=== PATIENT | female | born 1990 | race Caucasian/White ===

== ENCOUNTER 2016-09-08 13:31 | Emergency (ER) | payer OTHER ==
[2016-09-08 14:03] VITALS: RESP 20; TEMP 97.8
[2016-09-08] MEDS ORDERED: IBUPROFEN 800 MG TAB PO STA (14:26)
--- NOTE | 2016-09-08 14:32 | ED ---
Upper Extremity HPI - General Source: patient Mode of arrival: ambulatory Limitations: no limitations - History of Present Illness Place: home <Davina Pat - Last Filed: 09/08/16 14:17> <Aniket Myers - Last Filed: 10/23/16 14:49> - General Chief Complaint: Extremity Injury, Upper Stated Complaint: Injury/Finger Lac Time Seen by Provider: 09/08/16 14:16 - History of Present Illness Initial Comments: 26-year-old female presented to the ER after shutting her hand in a glass screen door. She has lacerations on the second and third digits distally involving the nailbed on the third digit. She does have artificial nails in place. She states that she is unable to move the hand due to pain. She has not taken anything for pain at this time and does say that at times it is in 8- 10 out of 10. She proceeded to the ER after the injury. Patient states she is unsure when her last tetanus shot was it may have been approximately 4-5 years ago when she was with her daughter. She denies any nausea, vomiting, numbness in the extremity. She denies any constitutional symptoms. (Davina Pat) - Related Data Home Medications Medication Instructions Recorded Confirmed Norgestimate-Ethinyl Estradiol 1 tab PO DAILY 09/08/16 09/08/16 [Sprintec 28 Day Tablet] Previous Rx's Medication Instructions Recorded Acetaminophen-Codeine 300-30mg 1 tab PO Q6H PRN #20 tablet 09/08/16 [Tylenol #3] Ibuprofen [Motrin] 800 mg PO Q8HR PRN #30 tab 09/08/16 Allergies Allergy/AdvReac Type Severity Reaction Status Date / Time cefaclor [From Ceclor] Allergy Unknown Verified 09/08/16 14:20 Review of Systems ROS Other: All systems not noted in ROS Statement are negative. <Davina Pat - Last Filed: 09/08/16 14:17> ROS Other: All systems not noted in ROS Statement are negative. <Aniket Myers - Last Filed: 10/23/16 14:49> ROS Statement: Those systems with pertinent positive or pertinent negative responses have been documented in the HPI. Past Medical History Past Medical History: No Reported History History of Any Multi-Drug Resistant Organisms: None Reported Past Surgical History: Orthopedic Surgery Additional Past Surgical History / Comment(s): left foot Past Psychological History: No Psychological Hx Reported Smoking Status: Never smoker Past Alcohol Use History: None Reported Past Drug Use History: None Reported <Davina Pat - Last Filed: 09/08/16 14:17> General Exam Limitations: no limitations General appearance: alert, other (Mild distress due to pain) Head exam: Present: atraumatic, normocephalic Eye exam: Present: normal appearance, PERRL, EOMI Pupils: Present: normal accommodation Neck exam: Present: normal inspection, full ROM Respiratory exam: Present: normal lung sounds bilaterally Cardiovascular Exam: Present: regular rate, normal rhythm Extremities exam: Present: normal capillary refill (Capillary refill less than 3 seconds status post laceration repair.), other (Right hand: Laceration linear approximately 1.5 cm involving the nailbed on the third digit with diffuse edema and mild ecchymosis on the palmar surface with no laceration present there. There is another laceration stellate in appearance on the second digit with mild edema. She has decreased range of motion of the digits. Unable to assess capillary refill due to pain. The thumb fourth and fifth digit are able to be moved passively. She has no issues in the wrist elbow or shoulder on the right hand. The left upper extremity is within normal limits.) Neurological exam: Present: alert, oriented X3, CN II-XII intact Psychiatric exam: Present: normal affect, normal mood Skin exam: Present: other (See upper extremity exam.) <Davina Pat - Last Filed: 09/08/16 14:17> Procedures - Laceration Laceration #1 Consent Obtained: verbal consent Time Out Performed: Yes Indication: laceration Site: hand (third digit) Description: irregular Depth: involves muscle layer Anesthetic Used: lidocaine 1%, without epi Anesthesia Technique: nerve block Pre-repair: wound explored, irrigated extensively Type of Sutures: nylon Size of Sutures: 5-0 Number of Sutures: 3 Technique: simple, interrupted, other (2 simple interrupted sutures were placed on the lateral inferior edge of the laceration and one circumferential suture was placed around the existing acrylic nail from the lateral to medial nail fold. The finger was then wrapped with Steri-Strips to give better approximation.) Patient Tolerated Procedure: well <Davina Pat N - Last Filed: 09/08/16 14:17> <Aniket Myers - Last Filed: 10/23/16 14:49> - Laceration Laceration #1 Additional Comments: Discussed with patient that her nail was severely injured and that it may not grow back properly. Also informed that she may lose the nail. Due to the depth of the laceration she may have permanent numbness as well. (Davina Pat) Medical Decision Making - Radiology Data Radiology results: report reviewed (Report states that there is a comminuted fracture of the distal phalanx.), image reviewed (Apparent tuft fracture on the third digit distal phalanx.) <Davina Pat - Last Filed: 09/08/16 14:17> <Aniket Myers - Last Filed: 10/23/16 14:49> - Medical Decision Making A 18-year-old female presented to the ER after shutting her hand in a glass door. She does have 2 lacerations on her second and third digit involving the nailbed. With diffuse edema and limited range of motion. Upon exam the laceration on the second digit involving the nailbed appears to the quite deep and an x-ray was ordered to evaluate underlying hand structures. The patient was given a Motrin 800 to help control pain. She states that she had a adverse reaction to Vicodin in the past. X-ray was reviewed with attending physician's and it does show that there is a tuft fracture of the third digit. Upon discussion with the attending physicians it was recommended that I suture what areas I was able suture. A nerve block was placed proximally at the MCP joint with 1% Xylocaine. The nail was then approximated. The area was then bandaged and placed in a finger splint. She is followed PCP and orthopedics this week. Patient was also placed off of work for 2 weeks for proper healing to occur. Explained that she would need to get clearance from PCP or orthopedics if she would like to return sooner. Suture removal is needed in 7 days. (Davina Pat) Disposition Time of Disposition: 16:08 <Davina Pat - Last Filed: 09/08/16 14:17> <Aniket Myers - Last Filed: 10/23/16 14:49> Clinical Impression: Crushing injury of finger, Laceration of finger nail bed, Open fracture of tuft of distal phalanx of finger Disposition: HOME SELF-CARE Condition: Stable Instructions: Finger Fracture (ED), Finger Laceration (ED) Additional Instructions: Suture removal needed in 7 days. To return to the ER with any worsening symptoms or concerns. To follow up with primary care physician and orthopedics. Prescriptions: Acetaminophen-Codeine 300-30mg [Tylenol #3] 1 tab PO Q6H PRN #20 tablet PRN Reason: Pain Ibuprofen [Motrin] 800 mg PO Q8HR PRN #30 tab PRN Reason: Pain Referrals: Janusz Fitch DO [Primary Care Provider] - 1-2 days Dean Glaser MD [STAFF PHYSICIAN] - 1-2 days
--- NOTE | 2016-09-08 14:52 | XR ---
EXAMINATION TYPE: XR hand complete RT DATE OF EXAM: 09/08/2016 2:43 PM COMPARISON: NONE HISTORY: Window fell on the hand laceration second and third digits TECHNIQUE: 3 views right hand FINDINGS: There is a comminuted fracture of the tuft of the index finger. No additional fractures are evident. Soft tissue swelling is over the distal index finger IMPRESSION: 1. Comminuted fracture distal tuft index finger
[2016-09-08] MEDS ORDERED: DIPH,PERTUS(ACELL)TETVAC-LF 0.5 ML VIAL IM ONE (16:01)
[2016-09-08 17:01] VITALS: BP 131/75; PULSE 68
== END 2016-09-08 17:00 | disposition home or self-care (01) ==
LOC: EC 13:31
DX: S62.630B Displaced fracture of distal phalanx of right index finger, initial encounter for open fracture (principal); S61.312A Laceration without foreign body of right middle finger with damage to nail, initial encounter; Z79.3 Long term (current) use of hormonal contraceptives; Z88.1 Allergy status to other antibiotic agents; Z23 Encounter for immunization; W23.0XXA Caught, crushed, jammed, or pinched between moving objects, initial encounter
CPT/HCPCS: 12041; 90471; 90715; 99283

== ENCOUNTER 2018-02-21 22:12 | Emergency (ER) | payer OTHER ==
--- NOTE | 2018-02-21 22:41 | ED ---
Female Urogenital HPI - General Chief complaint: Urogenital Stated complaint: urogenital Time Seen by Provider: 02/21/18 22:21 Source: patient Mode of arrival: ambulatory Limitations: no limitations - History of Present Illness Initial comments: This patient is 27-year-old woman presenting to be evaluated for some vaginal spotting and pelvic cramping. Patient relates that she is , who had taken two home test within the past few days and they were positive. She presents here because yesterday she had sexual intercourse and then had a small amount of spotting immediately thereafter. That did stop but she has had some intermittent pelvic cramping since. She does note that her last period last month was very light and was shorter than usual. She had been taking an oral contraceptive. Patient sees Dr. Baldomero ARNOLD Complaint: vaginal bleeding, pelvic pain Onset/Timin -: days(s) Location: suprapubic Radiation: non-radiating Severity: mild Quality: dull Consistency: constant Improves with: none Worsens with: none Patient : Yes - Related Data Sexually active: Yes Home Medications Medication Instructions Recorded Confirmed Norgestimate-Ethinyl Estradiol 1 tab PO DAILY 09/08/16 02/21/18 [Sprintec 28 Day Tablet] Allergies Allergy/AdvReac Type Severity Reaction Status Date / Time [facility] [[facility]] Allergy Unknown Verified 09/08/16 14:20 Review of Systems ROS Statement: Those systems with pertinent positive or pertinent negative responses have been documented in the HPI. ROS Other: All systems not noted in ROS Statement are negative. Constitutional: Denies: fever, chills, weakness ENT: Denies: congestion Respiratory: Denies: cough, dyspnea Cardiovascular: Denies: chest pain, palpitations, edema Gastrointestinal: Reports: as per HPI, abdominal pain. Denies: nausea, vomiting , diarrhea, constipation Genitourinary: Reports: abnormal menses (Last menstrual period was audio narrator than usual, basically spotting). Denies: dysuria, frequency, hematuria Musculoskeletal: Denies: back pain Skin: Denies: rash Neurological: Denies: headache, weakness Hematological/Lymphatic: Denies: easy bleeding Past Medical History Past Medical History: No Reported History History of Any Multi-Drug Resistant Organisms: None Reported Past Surgical History: Orthopedic Surgery Additional Past Surgical History / Comment(s): left foot Past Psychological History: No Psychological Hx Reported Smoking Status: Never smoker Past Alcohol Use History: Occasional Past Drug Use History: None Reported General Exam Limitations: no limitations General appearance: alert, in no apparent distress Head exam: Present: atraumatic, normocephalic, normal inspection Eye exam: Present: normal appearance. Absent: scleral icterus, conjunctival injection Pupils: Present: other (No pallor) ENT exam: Present: normal oropharynx, mucous membranes moist, other (No pallor) Respiratory exam: Present: normal lung sounds bilaterally. Absent: respiratory distress, wheezes, rales, rhonchi, stridor Cardiovascular Exam: Present: regular rate, normal rhythm, normal heart sounds. Absent: systolic murmur, diastolic murmur, rubs, gallop GI/Abdominal exam: Present: soft. Absent: distended, tenderness, guarding, rebound, rigid, mass Extremities exam: Present: normal inspection, normal capillary refill. Absent: pedal edema, calf tenderness Back exam: Absent: CVA tenderness (R), CVA tenderness (L) Neurological exam: Present: alert Skin exam: Present: warm, dry, intact, normal color. Absent: rash Course Vital Signs 02/21/18 22:14 Temperature 98.5 F Pulse Rate 82 Respiratory 18 Rate Blood Pressure 116/84 O2 Sat by Pulse 100 Oximetry Medical Decision Making - Medical Decision Making Patient has a beta hCG of 65. I discussed all of the findings with the patient and then discussed gynecologic exam and ultrasound. At this point the patient is not having any symptoms right now. She states that it has been a very long day and that she would prefer to just follow up with Dr. Alexandre in the clinic. I did stress that if the symptoms recur she should just return here immediately. At this point she is declining gynecologic exam and ultrasound. She does understand that she must follow-up in 48 hours for repeat hCG and probable ultrasound at that point. Discussed possibility of threatened miscarriage, ectopic and the rest of the differential diagnosis. Discussed return parameters and appropriate follow-up QUESTIONS answered - Lab Data Result diagrams: 02/21/18 22:34 02/21/18 22:34 Lab Results 02/21/18 02/21/18 Range/Units 22:34 22:34 WBC 7.6 (3.8-10.6) k/uL RBC 4.09 (3.80-5.40) m/uL Hgb 12.3 (11.4-16.0) gm/dL Hct 37.9 (34.0-46.0) % MCV 92.6 (80.0-100.0) fL MCH 30.0 (25.0-35.0) pg MCHC 32.4 (31.0-37.0) g/dL RDW 12.8 (11.5-15.5) % Plt Count 287 (150-450) k/uL Neutrophils % 57 % Lymphocytes % 32 % Monocytes % 6 % Eosinophils % 3 % Basophils % 1 % Neutrophils # 4.3 (1.3-7.7) k/uL Lymphocytes # 2.4 (1.0-4.8) k/uL Monocytes # 0.4 (0-1.0) k/uL Eosinophils # 0.2 (0-0.7) k/uL Basophils # 0.1 (0-0.2) k/uL Sodium 140 (137-145) mmol/L Potassium 4.1 (3.5-5.1) mmol/L Chloride 107 (98-107) mmol/L Carbon Dioxide 24 (22-30) mmol/L Anion Gap 9 mmol/L BUN 13 (7-17) mg/dL Creatinine 0.63 (0.52-1.04) mg/dL Est GFR (CKD-EPI)AfAm >90 (>60 ml/min/1.73 sqM) Est GFR (CKD-EPI)NonAf >90 (>60 ml/min/1.73 sqM) Glucose 89 (74-99) mg/dL Calcium 9.8 (8.4-10.2) mg/dL HCG, Quant 65.7 mIU/mL Disposition Clinical Impression: Threatened Disposition: HOME SELF-CARE Condition: Good Instructions: Threatened Miscarriage (ED) Is patient prescribed a controlled substance at d/c from ED?: No Referrals: Janusz Fitch DO [Primary Care Provider] - 1-2 days Christina Alexandre MD [STAFF PHYSICIAN] - 1-2 days
[2018-02-21 22:44] LABS: Basophils # (A) 0.1 k/uL (0-0.2); Basophils % (A) 1 %; Eosinophils # (A) 0.2 k/uL (0-0.7); Eosinophils % (A) 3 %; HCT 37.9 % (34.0-46.0); HGB 12.3 gm/dL (11.4-16.0); Lymphocytes # (A) 2.4 k/uL (1.0-4.8); Lymphocytes % (A) 32 %; MCHC 32.4 g/dL (31.0-37.0); MCV 92.6 fL (80.0-100.0); Mean Platelet Volume 6.8; Monocytes # (A) 0.4 k/uL (0-1.0); Monocytes % (A) 6 %; Neutrophils # (A) 4.3 k/uL (1.3-7.7); Neutrophils % (A) 57 %; Platelet Count 287 k/uL (150-450); RBC 4.09 m/uL (3.80-5.40); RDW 12.8 % (11.5-15.5); WBC 7.6 k/uL (3.8-10.6)
[2018-02-21 22:54] LABS: Anion Gap 9 mmol/L; Blood Urea Nitrogen 13 mg/dL (7-17); Calcium 9.8 mg/dL (8.4-10.2); Carbon Dioxide 24 mmol/L (22-30); Chloride 107 mmol/L (98-107); Glucose 89 mg/dL (74-99); Potassium 4.1 mmol/L (3.5-5.1); Sodium 140 mmol/L (137-145)
[2018-02-21 23:11] LABS: HCG,Quantitative Serum 65.7 mIU/mL
[2018-02-21] MEDS ORDERED: ACETAMINOPHEN TAB 325 MG TAB PO STA (23:27)
[2018-02-22 00:03] VITALS: BP 120/67; PULSE 74; RESP 16; TEMP 98.1
== END 2018-02-22 00:03 | disposition home or self-care (01) ==
LOC: EC 22:12
DX: O20.0 Threatened abortion (principal); Z88.1 Allergy status to other antibiotic agents; Z79.3 Long term (current) use of hormonal contraceptives; Z3A.00 Weeks of gestation of pregnancy not specified
CPT/HCPCS: 36415; 80048; 84702; 85025; 99284

== ENCOUNTER → 2018-02-24 | Outpatient (CLI) | payer OTHER | END | disposition home or self-care (01) | LOC: LABWHC1 08:30 | PROVIDERS: ATTEND Emergency Medicine | DX: O20.0 Threatened abortion (principal); Z3A.00 Weeks of gestation of pregnancy not specified | CPT/HCPCS: 36415; 84702 ==

== ENCOUNTER → 2018-02-26 | Outpatient (CLI) | payer OTHER ==
--- NOTE | 2018-02-26 14:21 | USB ---
Reason for exam: clinical finding. History: Family history of breast cancer in grandmother. Indicated problem(s): palpable abnormality in the left breast. Physical Findings: Nurse Summary: BB on area of palpable (nurse kp). US Breast LT Left complete breast ultrasound includes all four quadrants, the retroareolar region and axilla. Finding demonstrates no cystic or solid lesion seen. At the 12 o'clock palpable site, focal dense tissue is seen. These results were verbally communicated with the patient and result sheet given to the patient on 02/26/18. ASSESSMENT: Benign, BI-RAD 2 RECOMMENDATION: Routine screening mammogram of both breasts at age 38. (unless clinical indication to start sooner) Manage on a clinical basis with regard to any suspicious palpable abnormality.
--- NOTE | 2018-02-26 17:45 | US ---
EXAMINATION TYPE: Ultrasound OB <= 14 week transvaginal DATE OF EXAM: 02/26/2018 COMPARISON: NONE CLINICAL HISTORY: 27-year-old female Z33.1 STATE. LMP unknown, was on control when she got . EXAM PERFORMED: Transvaginal (TV) and Transabdominal (TA) FINDINGS: EXAM MEASUREMENTS: GESTATIONAL AGE / DATING Physician Established: Not yet established Dates by LMP: LMP unknown Dates by First Scan: No previous this is first scan Dates by Current Scan for: No IUP visualized on this exam MATERNAL ANATOMY Uterus: 9.3 x 4.8 x 5.5 cm Endometrium: 1.4 cm Right Ovary: 5.4 x 4.1 x 5.3 cm Left Ovary: 2.8 x 1.6 x 1.9 cm Post CDS / Adnexa: Free fluid visualized within the cul de sac and the right adnexa adjacent to the r ight ovary Presence of free fluid: Yes Presence of corpus luteal cyst: Cystic area right ovary measuring 3.9 x 4.1 x 4.0 cm Presence of subchorionic bleed: No GESTATION / SURVEY IUP: No IUP seen at this time Date of LMP: Unsure Beta HcG (if available): 366 on 02/24/2018 No IUP visualized at this time. Cystic area right ovary. Prominent vessels visualized bilateral adnex a. Free fluid visualized in the right adnexa and the posterior cul de sac. IMPRESSION: Mild cul-de-sac and right adnexal free fluid. This may be physiologic. There is also a probable 4.9 cm corpus luteal cyst in the right ovary. Note that the beta-hCG value is below the threshold for visualization of an intrauterine . A value of 2000 is the threshold with transvaginal scanning. Currently, differential considerations include early , failed , and nonvisualized e ctopic . Appropriate follow-up recommended to ensure the appearance of a normal pole w ith cardiac activity.
== END ==
LOC: RADUSWWP 12:45
PROVIDERS: ATTEND Family Medicine
DX: N63.0 Unspecified lump in unspecified breast (principal); Z33.1 Pregnant state, incidental
CPT/HCPCS: 76801; 76817

== ENCOUNTER → 2018-03-05 | Outpatient (CLI) | payer OTHER ==
--- NOTE | 2018-03-05 12:19 | US ---
EXAMINATION TYPE: Transabdominal DATE OF EXAM: 09/02/17 COMPARISON: NONE CLINICAL HISTORY: Z33.1 state, incidental. EXAM PERFORMED: Transvaginal (TV) and Transabdominal (TA) EXAM MEASUREMENTS: GESTATIONAL AGE / DATING Physician Established: Not yet established Dates by LMP: LMP unknown Dates by First Scan: Not dated by previous scan Dates by Current Scan for: (5 weeks/1 days) EDC: 11-04-18 MATERNAL ANATOMY Uterus: 9.4 x 5.1 x 5.3cm Right Ovary: 5.9 x 4.7 x 4.7cm, simple appearing cyst measuring 5.7x 4.2 x 5.4cm Left Ovary: 2.3 x 1.7 x 1.6cm Post CDS / Adnexa: wnl Presence of free fluid: small amount in cul de sac GESTATION / SURVEY CRL: not yet identified MSD: 1.1 (5 weeks/1 days) Yolk Sac (normal less than 6mm): 2.2mm Date of LMP: Unknown Beta HcG (if available): Not available at this time Probable early IUP. Preliminary results phoned to Kaleigh Baca and Dr. Miranda office. IMPRESSION: 1. Probable early intrauterine gestation estimated at 5 weeks 1 day gestation based on the mean sac d iameter. Yolk sac is identified. pole is not evident and follow-up is recommended.
== END | disposition home or self-care (01) ==
LOC: RADUSWWP 11:13
PROVIDERS: ATTEND Midwife
DX: Z33.1 Pregnant state, incidental (principal)
CPT/HCPCS: 76801; 76817

== ENCOUNTER → 2018-03-19 | Outpatient (CLI) | payer OTHER ==
--- NOTE | 2018-03-19 11:04 | US ---
EXAMINATION TYPE: Ultrasound OB <= 14 week fetus DATE OF EXAM: 03/19/2018 COMPARISON: 03/05/2018 CLINICAL HISTORY: 27-year-old female Z33.1 incidental. Confirm Dates, pt has no complaints at this time EXAM PERFORMED: Transabdominal (TA) FINDINGS: EXAM MEASUREMENTS: GESTATIONAL AGE / DATING Physician Established: Not yet established Dates by LMP: Unknown Dates by First Scan: (7 weeks/1 days) EDC: 11/04/2018 Dates by Current Scan for: (7 weeks/1 days) EDC: 11/04/2018 MATERNAL ANATOMY Uterus: 11.7 x 6.2 x 6.6 cm Right Ovary: 6.5 x 4.5 x 6.8 cm Left Ovary: 2.3 x 2.0 x 2.4 cm Post CDS / Adnexa: wnl Presence of free fluid: No Presence of corpus luteal cyst: Right Ovary= 5.2 x 3.7 x 5.6 cm Presence of subchorionic bleed: No GESTATION / SURVEY CRL: 1.1 cm (7 weeks/1 days) MSD: wnl Yolk Sac (normal less than 6mm): 2mm Heart Rate: 150 bpm Rhythm: Normal IUP: Viable IUP Date of LMP: Unknown Single, viable IUP/ No abnormality seen at this time IMPRESSION: 1. Single live uterine with gestational age of 7 weeks 1 day by crown-rump length. There spain s been appropriate interval growth from 03/05/2018. 2. Large corpus luteal cyst in the right ovary measuring 5.6 cm. It should be noted that a large ovar stephanie lesion can place the ovary at risk for torsion. Patient can be monitored clinically. 3. Complete survey recommended at 18-20 weeks.
== END | disposition home or self-care (01) ==
LOC: RADUSWWP 10:03
PROVIDERS: ATTEND Family Medicine
DX: Z34.91 Encounter for supervision of normal pregnancy, unspecified, first trimester (principal); Z3A.01 Less than 8 weeks gestation of pregnancy
CPT/HCPCS: 76801

== ENCOUNTER 2018-08-15 13:41 | Outpatient (CLI) | payer OTHER ==
[2018-08-15 14:58] VITALS: BP 106/51; PULSE 91; RESP 18
--- NOTE | 2018-09-01 09:26 | P.MSEPDOC ---
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, numbess of upper legs Medical History - Information : 4 Para: 3 Number of Living Children: 3 - History Comment: term vag delivery x3 previous pregnancies Review of Systems - Review of Systems Constitutional: No problems Breast: No problems ENT: No problems Cardiovascular: No problems Respiratory: No problems Gastrointestinal: No problems Genitourinary: No problems Musculoskeletal: No problems Neurological: No problems Skin: No problems Vital Signs - Pulse Right Sitting Brachial Pulse Rate: 91 Pulse Assessment Method: Automatic Cuff - Respirations Respiratory Rate: 18 Oxygen Delivery Method: Room Air - Blood Pressure Left Arm Sitting Blood Pressure: 106/51 Blood Pressure Mean: 69 Blood Pressure Source: Automatic Cuff Medical Screen Scoring (Pre) - Cervical Exam Dilation: 0 cm = 0 - Uterine Contractions Frequency: > 5 minutes apart = 1 Duration: N/A Intensity: N/A - Maternal Vital Signs Maternal Temperature: N/A Maternal Blood Pressure: Systolic >139 = 2 Signs of Preeclampsia: N/A Maternal Respirations: N/A - Pain Assessment Pain Location and Character: Abdomen Pain Scale Used: FLACC (1-3yrs) Pain Intensity: 3 Pain Management Goal: 3 Pain Description: Cramping - Assessment Baseline FHR: 135 Heart Rate - NICHD Category: Category I (Normal) = 0 NST: Reactive Position: N/A Station: N/A - Total Score Total Score (Pre): 3 - Level of Risk Level of Risk: Low (0-5) Physician Notification (Pre) - Physician Notified Physician Notified Date: 08/15/18 Physician Notified Time: 14:23 Physician/Practitioner Notifed:: Dr Robbins Spoke With: dr Robbins New Order Received: Yes - Notification Comment Comment: 29 5/7 weeks, pain x2-3 weeks worse today after trying to work. Pt states pain is better at rest. NST reactive, Cervix closed internal os (open external)/thick/high, rare contraction. pt dc home with plan to call friday with update and schedule appt to see Dr Niver this week. Encouraged rest, fluids and tylenol as directed. Off work until next appt if desired. Disposition - Disposition OB Disposition: Discharge to home Discharge Date: 08/15/18 Discharge Time: 14:57 I agree with the RN Medical Screening Exam: Yes Risk & Benefit of care provided described in d/c instruction: Yes Diagnosis: 27 WEEKS GESTATION OF
== END 2018-08-15 14:59 | disposition home or self-care (01) ==
LOC: FBPOP 13:41
PROVIDERS: ATTEND Obstetrics & Gynecology
DX: O26.893 Other specified pregnancy related conditions, third trimester (principal); R10.30 Lower abdominal pain, unspecified; M54.5 Low back pain; Z3A.29 29 weeks gestation of pregnancy
CPT/HCPCS: 59025; G0463; 99213

== ENCOUNTER 2018-10-02 15:51 | Outpatient (CLI) | payer OTHER ==
[2018-10-02 16:28] VITALS: BP 129/75; PULSE 95; RESP 18
[2018-10-02 16:53] VITALS: TEMP 99.2
--- NOTE | 2018-10-04 10:13 | P.MSEPDOC ---
Presenting Problems - Arrival Data Date of Arrival on Unit: 10/02/18 Time of Arrival on Unit: 15:55 Mode of Transport: Ambulatory - Complaint OB-Reason for Admission/Chief Complaint: Possible Onset of Labor, NST Medical History - Information : 4 Para: 3 Term: 3 : 0 Abortions: Spontaneous or Elective: 0 Number of Living Children: 3 - Gestational Age Gestational Age by RUBIO (wks/days): 35 Weeks and 4 Days Review of Systems - Review of Systems Constitutional: No problems Breast: No problems ENT: No problems Cardiovascular: No problems Respiratory: No problems Gastrointestinal: No problems Genitourinary: No problems Musculoskeletal: No problems Neurological: No problems Skin: No problems Vital Signs - Temperature Temperature: 99.2 F - Pulse Right Brachial Pulse Rate: 95 Pulse Assessment Method: Automatic Cuff - Respirations Respiratory Rate: 18 Oxygen Delivery Method: Room Air O2 Sat by Pulse Oximetry: 100 - Blood Pressure Right Arm Blood Pressure: 129/75 Blood Pressure Mean: 93 Blood Pressure Source: Automatic Cuff Medical Screen Scoring (Pre) - Cervical Exam Dilation: 1-3 cm = 1 Effacement: More than 50% = 2 Membranes: Intact - Uterine Contractions Frequency: N/A Duration: N/A Intensity: N/A - Maternal Vital Signs Maternal Temperature: N/A Maternal Blood Pressure: N/A Signs of Preeclampsia: N/A Maternal Respirations: N/A - Pain Assessment Pain Location and Character: Left, Hip Pain Scale Used: Numeric (1 - 10) Pain Intensity: 3 Pain Description: *Acute Pain Frequency: Occasional Pain Duration Units: Hours Pain Behavior: None Exhibited, Vocalization Pain Aggravating Factors: Activity, Contractions Non-Pharmacological Interventions: Position/Reposition - Maternal Trauma Maternal Trauma: N/A - Assessment Baseline FHR: 130 Heart Rate - NICHD Category: Category I (Normal) = 0 NST: Reactive Position: N/A Station: N/A - Total Score Total Score (Pre): 3 - Level of Risk Level of Risk: Low (0-5) Physician Notification (Pre) - Physician Notified Physician Notified Date: 10/02/18 Physician Notified Time: 16:45 Physician/Practitioner Notifed:: yes Spoke With: izabella New Order Received: Yes - Notification Comment Comment: disch home. hkeep fri appt with dr fuchs. to bee off work till fri appt. to call office mon am for note and then stop and pick it up. Disposition - Disposition OB Disposition: Discharge to home Discharge Date: 10/02/18 Discharge Time: 16:53 I agree with the RN Medical Screening Exam: Yes Risk & Benefit of care provided described in d/c instruction: Yes Diagnosis: FALSE LABOR BEFORE 37 COMPLETED WEEKS OF GEST, THIRD TRI
== END 2018-10-02 16:54 | disposition home or self-care (01) ==
LOC: FBPOP 15:51
PROVIDERS: ATTEND Obstetrics & Gynecology Obstetrics
DX: O47.03 False labor before 37 completed weeks of gestation, third trimester (principal); Z3A.35 35 weeks gestation of pregnancy
CPT/HCPCS: 59025; G0463; 99213

== ENCOUNTER 2018-10-10 19:19 | Outpatient (CLI) | payer OTHER ==
[2018-10-10 22:32] VITALS: BP 130/76; PULSE 100; RESP 16; TEMP 98.2
--- NOTE | 2018-11-26 08:02 | P.MSEPDOC ---
Presenting Problems - Arrival Data Date of Arrival on Unit: 10/10/18 Time of Arrival on Unit: 19:19 Mode of Transport: Ambulatory - Complaint OB-Reason for Admission/Chief Complaint: Possible Onset of Labor Comment: ctx 6 min apart Medical History - Information : 4 Para: 3 Term: 3 : 0 Abortions: Spontaneous or Elective: 0 Number of Living Children: 3 - Gestational Age Gestational Age by RUBIO (wks/days): 36 Weeks and 5 Days Review of Systems - Review of Systems Constitutional: No problems Breast: No problems ENT: No problems Cardiovascular: No problems Respiratory: No problems Gastrointestinal: No problems Genitourinary: No problems Musculoskeletal: No problems Neurological: No problems Skin: No problems Vital Signs - Temperature Temperature: 98.2 F Temperature Source: Temporal Artery Scan - Pulse Right Brachial Pulse Rate: 100 Pulse Assessment Method: Automatic Cuff - Respirations Respiratory Rate: 16 Oxygen Delivery Method: Room Air - Blood Pressure Right Arm Blood Pressure: 130/76 Blood Pressure Mean: 94 Blood Pressure Source: Automatic Cuff Medical Screen Scoring (Pre) - Cervical Exam Dilation: 4-7 cm = 2 Membranes: Intact - Uterine Contractions Frequency: > or = 36 weeks =2 Duration: > 40 seconds = 2 Intensity: N/A - Maternal Vital Signs Maternal Temperature: N/A Maternal Blood Pressure: N/A Signs of Preeclampsia: N/A Maternal Respirations: N/A - Assessment - Baby A Baseline FHR: 145 Heart Rate - NICHD Category: Category I (Normal) = 0 NST: Reactive Position: N/A Station: N/A - Total Score - Baby A Total Score - Baby A: 6 - Level of Risk - Baby A Level of Risk - Baby A: Medium (6-9) Medical Screen Scoring (Post) - Cervical Exam Dilation: 4-7 cm = 2 Membranes: Intact - Uterine Contractions Frequency: > or = 36 weeks =2 Duration: > 40 seconds = 2 - Total Score Total Score - Baby A: 6 - Post Treatment Level of Risk Post Treatment Level of Risk - Baby A: Medium (6-9) Physician Notification (Post) - Physician Notified Physician Notified Date: 10/10/18 Physician Notified Time: 21:03 Spoke With: Itzel New Order Received: Yes (No cervical liner roll changer 2 hours then discharge with instruction) - Notification Comment Comment: no cervical change made, follow up appt is on Disposition - Disposition OB Disposition: Discharge to home, Written follow up instructions reviewed Discharge Date: 10/10/18 Discharge Time: 22:08 I agree with the RN Medical Screening Exam: Yes Risk & Benefit of care provided described in d/c instruction: Yes Diagnosis: FALSE LABOR AT OR AFTER 37 COMPLETED WEEKS OF GESTATION
== END 2018-10-10 22:08 | disposition home or self-care (01) ==
LOC: FBPOP 19:19
PROVIDERS: ATTEND Obstetrics & Gynecology
DX: O47.03 False labor before 37 completed weeks of gestation, third trimester (principal); Z3A.36 36 weeks gestation of pregnancy
CPT/HCPCS: 59025; G0463; 99213

== ENCOUNTER 2018-10-28 05:58 | Inpatient (IN) | payer OTHER ==
[2018-10-28] MEDS ORDERED: METHYLERGONOVINE 0.2 MG/ML 1 ML AMP IM PRN (06:10)
[2018-10-28] MEDS ORDERED: TERBUTALINE 1 MG/ML VIAL SQ PRN (06:10)
[2018-10-28] MEDS ORDERED: OXYTOCIN 10 UNIT/ML 1 ML VIAL IM PRN (06:10)
[2018-10-28] MEDS ORDERED: LIDOCAINE 0.5% (PF) 5 MG/ML (50 ML SDV) SQ PRN (06:10)
[2018-10-28] MEDS ORDERED: CARBOPROST TROMETHAMINE 250 MCG/ML 1 ML AMP IM PRN (06:10)
[2018-10-28] MEDS: LACTATED RINGERS 1,000 ML IV SCH ×2 (06:20→18:02)
[2018-10-28] MEDS: OXYTOCIN 30 UNITS/500 ML NS 30 UNIT in SALINE 1 500ML.BAG IV SCH ×2 (06:21→22:28)
[2018-10-28 06:30] LABS: Basophils # (A) 0.1 k/uL (0-0.2); Basophils % (A) 1 %; Eosinophils # (A) 0.2 k/uL (0-0.7); Eosinophils % (A) 2 %; HCT 30.6 % (34.0-46.0); HGB 9.5 gm/dL (11.4-16.0); Hypochromasia Moderate; Lymphocytes # (A) 1.8 k/uL (1.0-4.8); Lymphocytes % (A) 22 %; MCH 24.7 pg (25.0-35.0); MCHC 30.9 g/dL (31.0-37.0); Mean Platelet Volume 7.3; Monocytes # (A) 0.4 k/uL (0-1.0); Monocytes % (A) 5 %; Neutrophils # (A) 5.6 k/uL (1.3-7.7); Neutrophils % (A) 67 %; Platelet Count 362 k/uL (150-450); RBC 3.82 m/uL (3.80-5.40); RDW 14.7 % (11.5-15.5); WBC 8.4 k/uL (3.8-10.6)
[2018-10-28 06:37] VITALS: BMI 27.7
[2018-10-28] MEDS ORDERED: CLINDAMYCIN 900 MG in DEXTROSE 5% IN WATER 50 ML IVPB STA ×2 (06:53)
--- NOTE | 2018-10-28 07:14 | P.HPOB ---
History of Present Illness H&P Date: 10/28/18 This is a 28-year-old white female 4 para 3003 EDC 11/02/2018 at 39-2/7 weeks' gestation. Patient presents today for induction, but is having spontaneous contractions. She denies fluid leakage or vaginal bleeding. Fetus is been active throughout the . Obstetric history is significant for positive group B strep cultures, blood type A+, rubella status immune. Pap smear reveals ASCUS, positive HPV. VDRL testing, urine culture, hepatitis B surface antigen, HIV testing, gonorrhea and chlamydia cultures all negative. One-hour Glucola 101. ALLERGIES include Ceclor to which reports a rash as a child. Family history significant for breast cancer, diabetes, heart issues. Obstetric history significant for normal spontaneous vaginal deliveries 3, all unremarkable. 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 Past surgical history significant for left foot surgery in 2001. Past medical history is significant for PCO OS. On exam this is a pleasant white female, 5 foot 7 inches, 177 pounds, vital s igns are stable and she is afebrile. The general physical exam is within normal limits. The chest is clear in all shaw. The cervix is 5-6 cm dilated, 80% effaced, -2 station, vertex presentation. Artificial amniorrhexis reveals clear fluid. heart rate is consistent with reactive NST. Uterine contractions are occurring every 5-6 minutes apart. Pitocin has just been started. Impression: 39-2/7 weeks intrauterine , here for elective induction in early spontaneous labor. Positive group B strep cultures. Plan: Clindamycin prophylaxis has been instituted. Analgesic options have been reviewed. Close maternal and surveillance. Anticipate normal spontaneous vaginal delivery. Review of Systems Constitutional: Reports as per HPI Past Medical History Past Medical History: No Reported History History of Any Multi-Drug Resistant Organisms: None Reported Past Surgical History: Orthopedic Surgery Additional Past Surgical History / Comment(s): left foot Past Anesthesia/Blood Transfusion Reactions: No Reported Reaction Past Psychological History: No Psychological Hx Reported Smoking Status: Never smoker Past Alcohol Use History: Occasional Past Drug Use History: None Reported - Past Family History Mother Family Medical History: No Reported History Medications and Allergies Home Medications Medication Instructions Recorded Confirmed Type Pnv,Calcium 72/Iron/Folic Acid 1 each PO DAILY 10/02/18 10/28/18 History [ Plus Tablet] Allergies Allergy/AdvReac Type Severity Reaction Status Date / Time cefaclor [From [facility]] Allergy Rash/Hives Verified 10/28/18 06:08 Exam Vital Signs Temp Pulse Resp BP 10/28/18 06:34 97.9 F 112 H 15 121/76 Intake and Output 10/27/18 10/28/18 10/28/18 22:59 06:59 14:59 Other: Weight 80.286 kg See dictation under HPI please Results Result Diagrams: 10/28/18 06:19 Abnormal Lab Results - Last 24 Hours (Table) 10/28/18 Range/Units 06:19 Hgb 9.5 L (11.4-16.0) gm/dL Hct 30.6 L (34.0-46.0) % MCH 24.7 L (25.0-35.0) pg MCHC 30.9 L (31.0-37.0) g/dL Assessment and Plan Assessment: 39+ weeks intrauterine , here for induction in early spontaneous labor. Positive group B strep cultures noted. Plan: Antibiotics have been instituted. Oxytocin as needed. Continue close maternal and surveillance. Analgesic options reviewed. Anticipate normal spontaneous vaginal delivery. Time with Patient: Less than 30
[2018-10-28] MEDS ORDERED: fentaNYL (PF) 50 MCG/ML 5 ML AMP ONE (07:43)
[2018-10-28] MEDS ORDERED: ROPIVACAINE 5MG/ML 20ML VIAL ONE (07:43)
[2018-10-28] MEDS ORDERED: SODIUM CHLORIDE 0.9% 100 ML BAG ONE (07:43)
[2018-10-28] MEDS ORDERED: ZOLPIDEM 5 MG TAB PO PRN (10:02)
[2018-10-28] MEDS ORDERED: diphenhydrAMINE 50 MG CAP PO PRN (10:02)
[2018-10-28] MEDS ORDERED: SIMETHICONE 80 MG CHEWABLE PO PRN (10:02)
[2018-10-28] MEDS ORDERED: diphenhydrAMINE 50 MG/ML 1 ML VIAL IVP PRN ×2 (10:02)
[2018-10-28] MEDS ORDERED: HYDROCORTISONE 2.5% RECTAL CREAM 30 GM TUBE RECTAL PRN (10:02)
[2018-10-28] MEDS ORDERED: BENZOCAINE/MENTHOL SPRAY 1 GM/SPRAY AEROSOL TOPICAL PRN (10:02)
[2018-10-28] MEDS ORDERED: diphenhydrAMINE ELIXIR 25 MG/10 ML CUP PO PRN (10:02)
[2018-10-28] MEDS ORDERED: WITCH HAZEL 1 EACH MED..PAD TOPICAL PRN (10:02)
[2018-10-28] MEDS ORDERED: LANOLIN CREAM 5 GM TUBE TOPICAL PRN (10:02)
[2018-10-28] MEDS ORDERED: diphenhydrAMINE 25 MG CAP PO PRN (10:02)
--- NOTE | 2018-10-28 10:02 | P.PROBDLV ---
Vaginal Delivery Note - . Vaginal Delivery Note: This is a 28-year-old white female 4 para 3003 EDC 11/02/2018 at 39-2/7 weeks' gestation. Patient presented for induction with spontaneous contractions. was essentially unremarkable, group B strep cultures positive, rubella status immune, blood type A+. Please see my dictated history and physical for details. Epidural was placed per her request. Artificial amniorrhexis revealed clear fluid. Patient progressed well through the first stage of labor and was judged to be completely dilated. Perineal prep was performed. 's head delivered occiput anterior and he restituted accordingly. There was no nuchal cord noted. Patient was officially delivered of a liveborn male infant at 0915 hours. Umbilical cord was doubly clamped and ligated, he was handed to waiting nurses for evaluation. Infant weight 8 lbs. 9 oz. or 3885 g. scores were 8 and 9 at one and 5 minutes respectively. Placenta delivered spontaneously, it was inspected and noted to be intact with trivascular cord at 0921 hours. Uterus is massaged. Inspection of cervix, vagina, perineum, periurethral, and perirectal areas revealed no lacerations and no defects. No suture material was needed. All sponge needle and enhancement counts are correct at the end of the procedure. Patient is requesting circumcision for her infant son. They are allowed to begin the bonding experience in the LDR.
[2018-10-28] MEDS ORDERED: OXYTOCIN 20 UNITS/1000 ML NS 1,000 ML IV SCH (10:15)
[2018-10-28] MEDS: IBUPROFEN 600 MG TAB PO PRN ×2 (14:38→21:34)
[2018-10-28] MEDS ORDERED: CLINDAMYCIN 900 MG in DEXTROSE 5% IN WATER 50 ML IVPB SCH ×2 (14:53)
[2018-10-28] MEDS: SENNOSIDES-DOCUSATE SODIUM 1 EACH TAB PO SCH (19:36)
[2018-10-28] MEDS: ACETAMINOPHEN TAB 325 MG TAB PO PRN (19:37)
[2018-10-29] MEDS: IBUPROFEN 600 MG TAB PO PRN ×2 (02:51→15:56)
--- NOTE | 2018-10-29 07:55 | P.PN ---
Subjective Progress Note Date: 10/29/18 Slept well. Moderate lochia rubra. Pain well controlled. No complaints Objective - Vital Signs Vital signs: Vital Signs Temp 98.2 F 10/28/18 23:18 Pulse 85 10/28/18 23:18 Resp 18 10/28/18 23:18 BP 128/70 10/28/18 23:18 Pulse Ox 99 10/28/18 23:18 Intake & Output 10/28/18 10/29/18 10/29/18 18:59 06:59 18:59 Output Total 200 Balance -200 Output: Estimated Blood Loss 200 Other: # Voids 1 - Constitutional General appearance: Present: average body habitus, cooperative - EENT Eyes: Present: PERRLA ENT: Present: hearing grossly normal - Neck Neck: Present: normal ROM Thyroid: negative: normal size - Respiratory Respiratory: bilateral: CTA - Cardiovascular Rhythm: regular - Gastrointestinal Gastrointestinal Comment(s): Fundus firm, midline, symmetric, 18 week size, nontender. General gastrointestinal: Present: normal bowel sounds - Integumentary Integumentary: Present: normal - Neurologic Neurologic: Present: CNII-XII intact - Musculoskeletal Musculoskeletal: Present: gait normal, strength equal bilaterally - Psychiatric Psychiatric: Present: A&O x's 3, appropriate affect, intact judgment & insight - Labs CBC & Chem 7: 10/28/18 06:19 Assessment and Plan Assessment: Doing well day #1 Plan: Patient choosing to stay secondary to infant need for 48 hours observat ion, positive group B strep status. We discharge home tomorrow. Time with Patient: Less than 30
[2018-10-29] MEDS: ACETAMINOPHEN TAB 325 MG TAB PO PRN ×2 (08:33→19:45)
[2018-10-29] MEDS: SENNOSIDES-DOCUSATE SODIUM 1 EACH TAB PO SCH ×2 (08:33→19:44)
[2018-10-30 00:23] VITALS: RESP 16
[2018-10-30] MEDS: IBUPROFEN 600 MG TAB PO PRN ×2 (04:42→11:17)
[2018-10-30] MEDS: SENNOSIDES-DOCUSATE SODIUM 1 EACH TAB PO SCH (07:58)
[2018-10-30] MEDS: ACETAMINOPHEN TAB 325 MG TAB PO PRN (07:58)
--- NOTE | 2018-10-30 07:59 | P.DS ---
Providers Date of admission: 10/28/18 05:58 Expected date of discharge: 10/30/18 Attending physician: Christina Alexandre Primary care physician: Stated None Hospital Course: This is a 28-year-old white female 4 para 3003 EDC 11/02/2018 at 39-2/7 weeks' gestation. Patient presented for induction with favorable multiparous cervix. is unremarkable, group B strep cultures were positive, blood type A+, rubella status immune. Please see dictated history and physical for details. Artificial amniorrhexis revealed clear fluid. Epidural was placed per her request. She quickly went on to vaginally deliver a liveborn male with scores of 8 and 9 at one and 5 minutes respectively. He weighed 3885 g or 8 lbs. 9 oz. Estimated blood loss at the time of delivery 200 mL's. No stitching or lacerations were encountered. Please see my dictated delivery note for details. Today the patient is doing well. She is voiding, ambulating and passing flatus without difficulty. Vital signs are stable and she is afebrile. Fundus is firm and in the midline, symmetric and 18 week size. Extremities are negative for edema. Breasts are not engorged. [place]out is doing well, circumcision has been performed. Patient is judged to be in very good condition for discharge home today. She will follow-up with me in the office in 6 weeks. I have reminded her no intercourse, tampons or douching. She will use [id number] Advil or Aleve as needed for pain. I reminded her to call me with any pain not alleviated by [id number] products, any large clots or heavy bleeding, or any difficulties or concerns that she might encounter. 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 We have briefly discussed options for contraception and we will review this further in the office. Patient Condition at Discharge: Good Plan - Discharge Summary Discharge Rx Participant: No New Discharge Prescriptions: No Action Pnv,Calcium 72/Iron/Folic Acid [ Plus Tablet] 1 each PO DAILY Discharge Medication List Pnv,Calcium 72/Iron/Folic Acid [ Plus Tablet] 1 each PO DAILY 10/02/18 [History] Follow up Appointment(s)/Referral(s): Christina Alexandre MD [STAFF PHYSICIAN] - 6 Weeks Discharge Disposition: HOME SELF-CARE
[2018-10-30 08:57] VITALS: BP 109/62; PULSE 81; TEMP 97.7
== END 2018-10-30 11:45 | disposition home or self-care (01) | DRG 807 ==
LOC: 4FBP 05:58
PROVIDERS: ADMIT Obstetrics & Gynecology; ATTEND Obstetrics & Gynecology
PROC: 10E0XZZ Delivery of Products of Conception, External Approach (ICD-10-PCS; principal; 2018-10-28)
PROC: 00HU33Z Insertion of Infusion Device into Spinal Canal, Percutaneous Approach (ICD-10-PCS; 2018-10-28)
PROC: 3E0R3BZ Introduction of Anesthetic Agent into Spinal Canal, Percutaneous Approach (ICD-10-PCS; 2018-10-28)
DX: O99.824 Streptococcus B carrier state complicating childbirth (principal); Z37.0 Single live birth; Z3A.39 39 weeks gestation of pregnancy; Z88.1 Allergy status to other antibiotic agents; Z80.3 Family history of malignant neoplasm of breast; Z83.3 Family history of diabetes mellitus; Z82.49 Family history of ischemic heart disease and other diseases of the circulatory system
CPT/HCPCS: 85025; 86850; 86900; 86901

== ENCOUNTER → 2019-01-07 | Outpatient (CLI) | payer OTHER ==
[2019-01-07 17:31] LABS: Anisocytosis Slight; Basophils # (A) 0.1 k/uL (0-0.2); Basophils % (A) 1 %; Eosinophils # (A) 0.2 k/uL (0-0.7); Eosinophils % (A) 5 %; HGB 11.1 gm/dL (11.4-16.0); Hypochromasia Moderate; Lymphocytes # (A) 1.8 k/uL (1.0-4.8); Lymphocytes % (A) 35 %; MCH 27.4 pg (25.0-35.0); MCHC 30.9 g/dL (31.0-37.0); MCV 88.6 fL (80.0-100.0); Monocytes # (A) 0.2 k/uL (0-1.0); Monocytes % (A) 5 %; Neutrophils # (A) 2.7 k/uL (1.3-7.7); Neutrophils % (A) 53 %; Platelet Count 275 k/uL (150-450); RBC 4.06 m/uL (3.80-5.40); RDW 16.8 % (11.5-15.5); WBC 5.2 k/uL (3.8-10.6)
== END | disposition home or self-care (01) ==
LOC: LABWHC1 16:00
PROVIDERS: ATTEND Obstetrics & Gynecology
DX: Z31.84 Encounter for fertility preservation procedure (principal)
CPT/HCPCS: 36415; 85025

== ENCOUNTER 2019-01-11 09:15 | Day surgery (SDC) | payer OTHER ==
[2019-01-07 10:48] VITALS: BMI 23.5
[~2019-01-11 09:15] MED LIST: DEXAMETHASONE SOD PHOSPHATE 10 MG/ML 1 ML VIAL IV ONE; KETOROLAC 30 MG/ML 1 ML VIAL IVP SCH; LACTATED RINGERS 1,000 ML IV SCH; LIDOCAINE 1% 20 ML VIAL (10MG/ML) FOR IV START INTRADERMA PRN; ONDANSETRON 4 MG/2 ML VIAL IVP ONE; ONDANSETRON 4 MG/2 ML VIAL IVP PRN; Pre Op ABX Message 1 EACH MISC MISCELLANE ONE; SCOPOLAMINE 1.5MG/72HR PATCH TRANSDERM ONE
[2019-01-11] MEDS ORDERED: LACTATED RINGERS 1,000 ML IV ONE ×2 (10:18→10:45)
[2019-01-11] MEDS ORDERED: fentaNYL (PF) 50 MCG/ML 2 ML AMP ONE (10:20)
[2019-01-11] MEDS ORDERED: PROPOFOL 10 MG/ML 20 ML VIAL IV ONE (10:20)
[2019-01-11] MEDS ORDERED: KETOROLAC 30 MG/ML 1 ML VIAL ONE (10:20)
[2019-01-11] MEDS ORDERED: LIDOCAINE 1% INJ 10MG/ML (20 ML MDV) ONE (10:20)
[2019-01-11] MEDS ORDERED: SUCCINYLCHOLINE CHLORIDE 100 MG/5 ML SYR IV ONE (10:20)
[2019-01-11] MEDS ORDERED: MIDAZOLAM 2 MG/2 ML VIAL ONE (10:20)
[2019-01-11] MEDS ORDERED: DEXAMETHASONE SOD PHOSPHATE 10 MG/ML 1 ML VIAL IV ONE (10:21)
[2019-01-11] MEDS ORDERED: BUPIVACAINE (PF) 0.25% 30 ML VIAL SQ ONE (10:53)
[2019-01-11] MEDS ORDERED: LIDOCAINE 0.5%-EPI 1:200,000 50 ML VIAL SQ ONE (11:00)
[2019-01-11] MEDS ORDERED: SILVER NITRATE APPLICATOR 1 EACH STICK..EA. TOPICAL ONE (11:05)
--- NOTE | 2019-01-11 11:10 | P.OP ---
Date of Procedure: 01/11/19 Preoperative Diagnosis: Undesired fertility Postoperative Diagnosis: Same, normal-appearing ovaries and tubes bilaterally. Procedure(s) Performed: Laparoscopic tubal ligation with Filshie clips Anesthesia: DISHA Surgeon: Christina Alexandre Estimated Blood Loss (ml): 20 IV fluids (ml): 700 Urine output (ml): 50 Pathology: none sent Condition: stable Disposition: PACU Description of Procedure: Patient is brought to the operating suite where a general anesthetic is administered without difficulty. She's placed in the dorsal lithotomy position. Urine hCG is negative. Antibiotics are not deemed necessary. The appropriate timeout is performed to assure proper patient and procedural identification. The cervix, vagina, perineum, and abdomen are all prepped and draped in usual sterile fashion. Examination under anesthesia reveals a small anteverted mobile uterus, negative adnexa bilaterally. The bladder is drained for 50 mL of clear yellow urine. Speculum is placed. Anterior lip of the cervix is grasped with a tenaculum. [place] cannula is placed and attached to the tenaculum, speculum is removed. Attention is now drawn to the abdominal wall. A small infraumbilical incision is made. Areas needle is placed and placement is checked with hanging drop technique. The abdomen is insufflated under low filling pressures of approximately 6-8 mmHg for a total of 4 L of CO2 gas. There is needle is removed. Incision is made infraumbilically. The trochars placed and placement is noted to be atraumatic. Patient is now positioned in the Trendelenburg position. A second incision is made suprapubically and under direct visualization the second trocar is placed. Uterus is now positioned anteverted and lateral. The right fallopian tube is visualized in its entirety to the fimbriated end. A Filshie clip is placed in the entire diameter of the tube into the mesal salpinx. Fimbriated is noted to assure proper placement. Ovaries appears normal. The instrument is reloaded, and a Filshie clip is placed on the oppo site tube, again fimbriated and visualized, and again mesal salpinx also seen as the tube was placed through the entire isthmic portion of the tube. Ovary again is normal. No evidence of adhesions or endometriosis. Hemostasis is excellent. CO2 gas was allowed to diffuse. Trochars are removed and the fascial defects are visualized and noted to be clean and dry. 4-0 Monocryl is used in a subcuticular manner to close the incisions. They are injected with half percent lidocaine with epinephrine to aid in analgesia and hemostasis. 10 mL total used. Instrumentation is removed from the vagina. Cervix is clean and dry. All sponge needle and enhancement counts are correct. Patient is brought back to recovery room in very good condition with stable vital signs including blood pressure 95/46, pulse 75. Toradol is given prior to leaving the operative suite. Complications: None patient will follow-up with me in the office in 2 weeks.
[2019-01-11 11:29] VITALS: TEMP 97.7
[2019-01-11] MEDS: HYDROmorphone 0.5 MG/0.5 ML SYRINGE IVP PRN ×3 (11:56→12:15)
[2019-01-11 12:08] VITALS: RESP 16
[2019-01-11 12:59] VITALS: PULSE 60
[2019-01-11] MEDS ORDERED: ACETAMINOPHEN TAB 325 MG TAB PO ONE (12:59)
[2019-01-11 14:18] VITALS: BP 117/75
== END 2019-01-11 15:07 | disposition home or self-care (01) ==
LOC: OR 09:15
PROVIDERS: ATTEND Obstetrics & Gynecology
DX: Z30.2 Encounter for sterilization (principal); Z79.1 Long term (current) use of non-steroidal anti-inflammatories (NSAID); Z79.899 Other long term (current) drug therapy; Z88.1 Allergy status to other antibiotic agents; Z83.3 Family history of diabetes mellitus; Z80.3 Family history of malignant neoplasm of breast
CPT/HCPCS: 58671; 81025; J2250; J1100; J2405; J2001; J3010; J1885; J0330; J2704; J1170

== ENCOUNTER → 2019-08-17 | Outpatient (CLI) | payer OTHER ==
--- NOTE | 2019-08-17 15:25 | XR ---
EXAMINATION TYPE: XR chest 2V DATE OF EXAM: 08/17/2019 COMPARISON: NONE HISTORY: Chest pain and palpitations TECHNIQUE: Frontal and lateral views of the chest are obtained. FINDINGS: There is no focal air space opacity, pleural effusion, or pneumothorax seen. Slight eventr ation of the right hemidiaphragm is seen. The cardiac silhouette size is within normal limits. The osseous structures are intact. IMPRESSION: No acute cardiopulmonary process.
== END | disposition home or self-care (01) ==
LOC: RADXRMAIN 15:08
PROVIDERS: ATTEND Family Medicine
DX: R07.89 Other chest pain (principal); R00.2 Palpitations
CPT/HCPCS: 71046

== ENCOUNTER → 2020-03-21 | Outpatient (CLI) | payer OTHER | END | disposition home or self-care (01) | LOC: LABWHC1 16:54 | PROVIDERS: ATTEND Family Medicine | DX: Z03.818 Encounter for observation for suspected exposure to other biological agents ruled out (principal) | CPT/HCPCS: U0003; C9803 ==

== ENCOUNTER → 2020-10-05 | Outpatient (CLI) | payer OTHER ==
[2020-10-05 20:25] LABS: Basophils # (A) 0.05 X 10*3/uL (0.00-0.10); Basophils % (A) 1.1 %; Eosinophils # (A) 0.21 X 10*3/uL (0.04-0.35); Eosinophils % (A) 4.5 %; HCT 39.9 % (37.2-46.3); HGB 12.2 g/dL (12.0-15.0); Lymphocytes # (A) 1.77 X 10*3/uL (0.90-5.00); Lymphocytes % (A) 37.9 %; MCH 29.4 pg (27.0-32.0); MCHC 30.6 g/dL (32.0-37.0); MCV 96.1 fL (80.0-97.0); Monocytes # (A) 0.38 X 10*3/uL (0.20-1.00); Monocytes % (A) 8.1 %; Neutrophils # (A) 2.25 X 10*3/uL (1.80-7.70); Neutrophils % (A) 48.2 %; Platelet Count 336 X 10*3/uL (140-440); RBC 4.15 X 10*6/uL (4.10-5.20); RDW 12.7 % (11.5-14.5); WBC 4.67 X 10*3/uL (4.50-10.00)
[2020-10-06 03:53] LABS: African American GFR (CKD) 132.9 (60.0-200.0); Non-African American GFR(CKD) 114.6 (60.0-200.0)
[2020-10-06 04:01] LABS: T4, Free (Free Thyroxine) 1.1 ng/dL (0.80-1.80)
== END | disposition home or self-care (01) ==
LOC: LABWHC1 10:40
PROVIDERS: ATTEND Dermatology
DX: L63.8 Other alopecia areata (principal)
CPT/HCPCS: 36415; 82565; 84439; 84443; 84450; 84460; 84520; 85025

== ENCOUNTER 2021-10-20 15:20 | Emergency (ER) | payer OTHER ==
[2021-10-20 16:14] VITALS: BP 122/84; PULSE 65; RESP 16; TEMP 98.3
--- NOTE | 2021-10-20 17:59 | XR ---
EXAMINATION TYPE: XR chest 2V DATE OF EXAM: 10/20/2021 5:31 PM COMPARISON: Chest radiographs from 08/17/2019 TECHNIQUE: XR chest 2V Frontal and lateral views of the chest. CLINICAL INDICATION:Female, 31 years old with history of pneumonia; FINDINGS: Lungs/Pleura: There is no evidence of pleural effusion, focal consolidation, or pneumothorax. Pulmonary vascularity: Unremarkable. Heart/mediastinum: Cardiomediastinal silhouette is unremarkable. Musculoskeletal: No acute osseous pathology. IMPRESSION: No acute cardiopulmonary disease/process.
--- NOTE | 2021-10-20 18:28 | ED ---
General Adult HPI - General Chief complaint: Upper Respiratory Infection Stated complaint: coughing up blood, covid+ Time Seen by Provider: 10/20/21 17:49 Source: patient, RN notes reviewed Mode of arrival: ambulatory Limitations: no limitations - History of Present Illness Initial comments: 31-year-old female presents to the emergency department for evaluation of cough, chest discomfort with coughing, and shortness of breath. Patient states she was sent over from the walk-in clinic for further evaluation. States she has Covid positive and has been coughing up a small amount of blood. Patient states she is feeling fine at the moment and only has shortness of breath with exertional activity. States the pain comes and goes. Denies fever, chills, headache, dizziness, palpitations, abdominal pain, nausea, vomiting, diarrhea, or dysuria. - Related Data Home Medications Medication Instructions Recorded Confirmed Acetaminophen Tab [Tylenol Tab] 650 mg PO Q6H PRN 01/07/19 01/07/19 Ibuprofen [Motrin] 400 mg PO Q6HR PRN 01/07/19 01/07/19 Previous Rx's Medication Instructions Recorded Benzonatate [Tessalon Perles] 100 mg PO TID PRN #15 capsule 10/20/21 Ibuprofen [Motrin] 600 mg PO Q8HR PRN #20 tab 10/20/21 Allergies Allergy/AdvReac Type Severity Reaction Status Date / Time [facility] Allergy Rash/Hives Verified 10/20/21 16:10 Review of Systems ROS Statement: Those systems with pertinent positive or pertinent negative responses have been documented in the HPI. ROS Other: All systems not noted in ROS Statement are negative. Past Medical History Past Medical History: No Reported History History of Any Multi-Drug Resistant Organisms: None Reported Past Surgical History: Orthopedic Surgery, Tubal Ligation Additional Past Surgical History / Comment(s): left foot surg. Past Anesthesia/Blood Transfusion Reactions: No Reported Reaction Past Psychological History: No Psychological Hx Reported Smoking Status: Never smoker Past Alcohol Use History: Occasional Past Drug Use History: None Reported - Past Family History Mother Family Medical History: No Reported History General Exam Limitations: no limitations (Well-developed, well-nourished female in no acute distress. Initial temperature 98.3, pulse 65, respirations 16, blood pressure 122/84, pulse ox 99% on room air.) General appearance: alert, in no apparent distress Eye exam: Present: normal appearance, PERRL, EOMI. Absent: scleral icterus, conjunctival injection ENT exam: Present: normal exam, normal oropharynx, mucous membranes moist Neck exam: Present: normal inspection, full ROM. Absent: tenderness, meningismus, lymphadenopathy Respiratory exam: Present: normal lung sounds bilaterally, other (Reports hemoptysis, however none observed). Absent: respiratory distress, wheezes, rales, rhonchi, stridor, chest wall tenderness Cardiovascular Exam: Present: regular rate, normal rhythm, normal heart sounds. Absent: systolic murmur, diastolic murmur, rubs, gallop, clicks GI/Abdominal exam: Present: soft, normal bowel sounds. Absent: distended, tenderness, guarding, rebound, rigid Extremities exam: Present: normal inspection, full ROM, normal capillary refill. Absent: tenderness, pedal edema, joint swelling, calf tenderness Neurological exam: Present: alert, oriented X3, CN II-XII intact Psychiatric exam: Present: normal affect, normal mood Skin exam: Present: warm, dry, intact, normal color. Absent: rash Course Vital Signs 10/20/21 16:10 Temperature 98.3 F Pulse Rate 65 Respiratory 16 Rate Blood Pressure 122/84 O2 Sat by Pulse 99 Oximetry - Reevaluation(s) Reevaluation #1: 10/20/21 19:41 On reevaluation, patient is resting comfortably and reports readiness for discharge. She will be provided with a work note. Return parameters discussed in detail. Patient verbalizes understanding. Medical Decision Making - Medical Decision Making This is a 31-year-old female with no significant past medical history who presents to the emergency department for evaluation of, this is. Patient was sent from urgent care for evaluation of possible PE. Upon exam, patient is well-appearing and in no acute distress. She is able to ambulate without difficulty or shortness of breath. Patient tested positive for Covid on Friday and has since developed and intense cough. Vital signs are stable. Laboratory studies are unremarkable. Chest x-ray is negative. As her d-dimer was not elevated, CT for PE study was deferred. She is given Tessalon Perles for cough and instructed to increase fluids. Suggested alternating Tylenol and Motrin as needed for fever and discomfort. Patient is instructed to follow up with her PCP for a recheck on Friday. She is given a note for work. Return parameters discussed in detail. Patient verbalizes understanding and agrees with this plan. Attending: Nicholas. - Lab Data Result diagrams: 10/20/21 19:12 10/20/21 19:12 Lab Results 10/20/21 10/20/21 10/20/21 Range/Units 19:12 19:12 19:12 WBC 4.9 (3.8-10.6) k/uL RBC 4.03 (3.80-5.40) m/uL Hgb 12.0 (11.4-16.0) gm/dL Hct 38.3 (34.0-46.0) % MCV 95.1 (80.0-100.0) fL MCH 29.7 (25.0-35.0) pg MCHC 31.2 (31.0-37.0) g/dL RDW 12.3 (11.5-15.5) % Plt Count 299 (150-450) k/uL MPV 7.1 Neutrophils % 51 % Lymphocytes % 39 % Monocytes % 5 % Eosinophils % 2 % Basophils % 1 % Neutrophils # 2.5 (1.3-7.7) k/uL Lymphocytes # 1.9 (1.0-4.8) k/uL Monocytes # 0.2 (0-1.0) k/uL Eosinophils # 0.1 (0-0.7) k/uL Basophils # 0.1 (0-0.2) k/uL D-Dimer 0.39 (<0.60) mg/L FEU Sodium 139 (137-145) mmol/L Potassium 4.1 (3.5-5.1) mmol/L Chloride 105 (98-107) mmol/L Carbon Dioxide 25 (22-30) mmol/L Anion Gap 9 mmol/L BUN 13 (7-17) mg/dL Creatinine 0.56 (0.52-1.04) mg/dL Est GFR (CKD-EPI)AfAm >90 (>60 ml/min/1.73 sqM) Est GFR (CKD-EPI)NonAf >90 (>60 ml/min/1.73 sqM) Glucose 95 (74-99) mg/dL Calcium 9.4 (8.4-10.2) mg/dL Total Bilirubin 0.7 (0.2-1.3) mg/dL AST 24 (14-36) U/L ALT 12 (4-34) U/L Alkaline Phosphatase 56 (38-126) U/L Total Protein 8.0 (6.3-8.2) g/dL Albumin 4.8 (3.5-5.0) g/dL - Radiology Data Radiology results: report reviewed, image reviewed Two-view chest x-ray was obtained. Report was reviewed in its entirety. Impression per Dr. Melo is no acute cardiopulmonary disease/process. Disposition Clinical Impression: Cough Disposition: HOME SELF-CARE Condition: Stable Instructions (If sedation given, give patient instructions): Antitussives (By mouth), Acute Cough (ED) Additional Instructions: You are being prescribed a cough suppressive medication called Tessalon Perles. Do not break, chew, or puncture the capsule. Alternate Tylenol and Motrin if needed for fever or body aches. A note for work is provided. Maintain hydration. Follow-up with your PCP for a recheck on Friday or Friday. Return to the emergency department with any new, worsening, or concerning symptoms. Prescriptions: Ibuprofen [Motrin] 600 mg PO Q8HR PRN #20 tab PRN Reason: Pain Benzonatate [Tessalon Perles] 100 mg PO TID PRN #15 capsule PRN Reason: Cough Is patient prescribed a controlled substance at d/c from ED?: No Referrals: Janusz Fitch DO [Primary Care Provider] - 1-2 days
[2021-10-20 19:23] LABS: Basophils # (A) 0.1 k/uL (0-0.2); Basophils % (A) 1 %; Eosinophils # (A) 0.1 k/uL (0-0.7); Eosinophils % (A) 2 %; HCT 38.3 % (34.0-46.0); Lymphocytes # (A) 1.9 k/uL (1.0-4.8); Lymphocytes % (A) 39 %; MCH 29.7 pg (25.0-35.0); MCHC 31.2 g/dL (31.0-37.0); MCV 95.1 fL (80.0-100.0); Mean Platelet Volume 7.1; Monocytes # (A) 0.2 k/uL (0-1.0); Monocytes % (A) 5 %; Neutrophils # (A) 2.5 k/uL (1.3-7.7); Neutrophils % (A) 51 %; Platelet Count 299 k/uL (150-450); RBC 4.03 m/uL (3.80-5.40); RDW 12.3 % (11.5-15.5); WBC 4.9 k/uL (3.8-10.6)
[2021-10-20 19:31] LABS: ALT 12 U/L (4-34); AST 24 U/L (14-36); African American GFR (CKD) >90 (>60 ml/min/1.73 sqM); Albumin 4.8 g/dL (3.5-5.0); Alkaline Phosphatase 56 U/L (38-126); Anion Gap 9 mmol/L; Blood Urea Nitrogen 13 mg/dL (7-17); Calcium 9.4 mg/dL (8.4-10.2); Carbon Dioxide 25 mmol/L (22-30); Chloride 105 mmol/L (98-107); Glucose 95 mg/dL (74-99); Non-African American GFR(CKD) >90 (>60 ml/min/1.73 sqM); Potassium 4.1 mmol/L (3.5-5.1); Sodium 139 mmol/L (137-145); Total Bilirubin 0.7 mg/dL (0.2-1.3)
[2021-10-20] MEDS ORDERED: IBUPROFEN 600 MG TAB PO STA (19:47)
[2021-10-20] MEDS ORDERED: BENZONATATE 100 MG CAP PO STA (19:47)
== END 2021-10-20 20:20 | disposition home or self-care (01) ==
LOC: EC 15:20
DX: R05.9 Cough, unspecified (principal); Z88.1 Allergy status to other antibiotic agents
CPT/HCPCS: 36415; 71046; 80053; 85025; 85379; 99285

== ENCOUNTER 2024-07-06 09:16 | Emergency (ER) | payer OTHER ==
[2024-07-06 09:33] VITALS: TEMP 98.1
[2024-07-06] MEDS: IBUPROFEN 600 MG TAB PO STA (09:55)
--- NOTE | 2024-07-06 09:58 | ED ---
Upper Extremity HPI - General Chief Complaint: Extremity Injury, Upper Stated Complaint: Fall, right hand injury, [facility] Time Seen by Provider: 07/06/24 09:28 Source: patient, RN notes reviewed Mode of arrival: ambulatory Limitations: no limitations - History of Present Illness Initial Comments: 34-year-old female presents emergency department with chief complaint of slip and fall. Patient states she slipped on the ice falling onto her right wrist region states she did fall onto her buttocks but has no significant discomfort no head injury no loss conscious. She has small abrasion, laceration to her right hand tetanus up-to-date. - Related Data Home Medications Medication Instructions Recorded Confirmed Acetaminophen Tab [Tylenol Tab] 650 mg PO Q6H PRN 01/07/19 01/07/19 Ibuprofen [Motrin] 400 mg PO Q6HR PRN 01/07/19 01/07/19 Previous Rx's Medication Instructions Recorded Benzonatate [Tessalon Perles] 100 mg PO TID PRN #15 capsule 10/20/21 Ibuprofen [Motrin] 600 mg PO Q8HR PRN #20 tab 10/20/21 Allergies Allergy/AdvReac Type Severity Reaction Status Date / Time cefaclor [From Ceclor] Allergy Rash/Hives Verified 07/06/24 09:28 Review of Systems ROS Statement: Those systems with pertinent positive or pertinent negative responses have been documented in the HPI. ROS Other: All systems not noted in ROS Statement are negative. Past Medical History Past Medical History: No Reported History History of Any Multi-Drug Resistant Organisms: None Reported Past Surgical History: Orthopedic Surgery, Tubal Ligation Additional Past Surgical History / Comment(s): left foot surg. Past Anesthesia/Blood Transfusion Reactions: No Reported Reaction Past Psychological History: No Psychological Hx Reported Smoking Status: Never smoker Past Alcohol Use History: Occasional Past Drug Use History: None Reported - Past Family History Mother Family Medical History: No Reported History General Exam Limitations: no limitations General appearance: alert, in no apparent distress Head exam: Present: atraumatic, normocephalic, normal inspection Neck exam: Present: normal inspection, full ROM. Absent: tenderness, meningismus, lymphadenopathy Respiratory exam: Present: normal lung sounds bilaterally. Absent: respiratory distress, wheezes, rales, rhonchi, stridor Cardiovascular Exam: Present: regular rate, normal rhythm, normal heart sounds. Absent: systolic murmur, diastolic murmur, rubs, gallop, clicks Extremities exam: Present: other (Right hand, wrist there is small abrasion in proximal region of the hand, tenderness and ecchymosis over this region and wrist, no obvious department arrest contact) Course Vital Signs 07/06/24 09:22 Temperature 98.1 F Pulse Rate 97 Respiratory 17 Rate Blood Pressure 108/73 O2 Sat by Pulse 100 Oximetry Medical Decision Making - Medical Decision Making Was pt. sent in by a medical professional or institution (CAROLINA Moran, DELIVERY DRIVER, urgent care, hospital, or halfway...) When possible be specific @ -No Did you speak to anyone other than the patient for history (EMS, parent, family, police, friend...)? What history was obtained from this source @ -No Did you review nursing and triage notes (agree or disagree)? Why? @ -I reviewed and agree with nursing and triage notes Were old charts reviewed (outside hosp., previous admission, EMS record, old EKG, old radiological studies, urgent care reports/EKG's, halfway records)? Report findings @ -No old charts were reviewed Differential Diagnosis (chest pain, altered mental status, abdominal pain women, abdominal pain men, vaginal bleeding, weakness, fever, dyspnea, syncope, headache, dizziness, GI bleed, back pain, seizure, CVA, palpatations, mental health, musculoskeletal)? @ -Fall, hand fracture, hand sprain, abrasion EKG interpreted by me (3pts min.). @ -None X-rays interpreted by me (1pt min.). @ -Right wrist shows no acute fracture or malalignment CT interpreted by me (1pt min.). @ -None done U/S interpreted by me (1pt. min.). @ -None done What testing was considered but not performed or refused? (CT, X-rays, U/S, labs)? Why? @ -None What meds were considered but not given or refused? Why? @ -None Did you discuss the management of the patient with other professionals (professionals i.e. CAROLINA Moran, DELIVERY DRIVER, lab, RT, psych nurse, manager social, domestic technician, teacher, lead security officer, family independence case manager)? Give summary @ -No Was smoking cessation discussed for >3mins.? @ -No Was critical care preformed (if so, how long)? @ -No Were there social determinants of health that impacted care today? How? (Homelessness, low income, unemployed, alcoholism, drug addiction, tra nsportation, low edu. Level, literacy, decrease access to med. care, shelter, rehab)? @ -No Was there de-escalation of care discussed even if they declined (Discuss DNR or withdrawal of care, Hospice)? DNR status @ -No What co-morbidities impacted this encounter? (DM, HTN, Smoking, COPD, CAD, Cancer, CVA, ARF, Chemo, Hep., AIDS, mental health diagnosis, sleep apnea, morbid obesity)? @ -None Was patient admitted / discharged? Hospital course, mention meds given and route, prescriptions, significant lab abnormalities, going to OR and other pertinent info. @ -Discharge patient has right hand contusion sprain with abrasion patient is discharged in stable condition return parameters aung. Undiagnosed new problem with uncertain prognosis? @ -No Drug Therapy requiring intensive monitoring for toxicity (Heparin, Nitro, Insulin, Cardizem)? @ -No Were any procedures done? @ -No Diagnosis/symptom? @ -Fall, right hand sprain, abrasion Acute, or Chronic, or Acute on Chronic? @ -Acute Uncomplicated (without systemic symptoms) or Complicated (systemic symptoms)? @ -Complicated Side effects of treatment? @ -No Exacerbation, Progression, or Severe Exacerbation? @ -No Poses a threat to life or bodily function? How? (Chest pain, [place], SC, pneumonia, PE, COPD, DKA, ARF, appy, cholecystitis, CVA, Diverticulitis, Homicidal, Suicidal, threat to staff... and all critical care pts) @ -No Disposition Clinical Impression: Fall from slipping on ice, Contusion of right hand, Sprain of wrist, right Disposition: HOME SELF-CARE Condition: Stable Instructions (If sedation given, give patient instructions): Wrist Injury (ED), Hand Sprain (ED) Additional Instructions: Please return to the Emergency Department if symptoms worsen or any other concerns. Is patient prescribed a controlled substance at d/c from ED?: No Referrals: Janusz Fitch DO [Primary Care Provider] - 1-2 days Time of Disposition: 10:37
--- NOTE | 2024-07-06 10:34 | XR ---
EXAMINATION TYPE: XR hand complete RT DATE OF EXAM: 07/06/2024 10:09 AM COMPARISON: 09/08/2016 CLINICAL INDICATION: Female, 34 years old with history of fall, pain, pain TECHNIQUE: 3 view(s) obtained. FINDINGS: Old fracture of the tuft of the index finger is evident. No acute osseous abnormalities radiographica lly apparent. Joint spaces are preserved. Soft tissues are normal. No suspicious soft tissue foreign body evident. Follow up exams can be performed 7-10 days from acute trauma for continued pain. IMPRESSION: 1. No acute osseous abnormality right hand. 2. No radiopaque foreign bodies evident. [facility], , 07/06/2024 10:32 AM
[2024-07-06] MEDS: BACITRACIN OINT 1 EACH PACKET TOPICAL ONE (10:41)
[2024-07-06 11:22] VITALS: BP 108/76; PULSE 88; RESP 16
== END 2024-07-06 11:33 | disposition home or self-care (01) ==
LOC: EC 09:16
DX: S60.221A Contusion of right hand, initial encounter (principal); S63.501A Unspecified sprain of right wrist, initial encounter; Z88.1 Allergy status to other antibiotic agents; W00.0XXA Fall on same level due to ice and snow, initial encounter
CPT/HCPCS: 99283

== ENCOUNTER → 2024-08-06 | Outpatient (CLI) | payer OTHER ==
--- NOTE | 2024-08-12 13:09 | MM ---
Reason for Exam: Screening (asymptomatic). Baseline mammogram. Patient History: Menarche at age 11. First Full-Term at age 14. Bilateral Implants. Maternal grandmother had breast cancer. Maternal aunt had breast cancer at or over age 50. Paternal aunt had breast cancer at or over age 50. Risk Values: Vicki 5 year model risk: 0.2%. NCI Lifetime model risk: 7.5%. Prior Study Comparison: Patient's first Mammogram. No prior studies available for comparison. Tissue Density: The breasts are heterogeneously dense, which may obscure small masses. Findings: Analyzed By CAD. Bilateral retropectoral silicone implants. No significant mass, suspicious microcalcification, or other discrete abnormality is seen. Overall Assessment: Benign, BI-RAD 2 Management: Screening Mammogram of both breasts in 1 year. Patient should continue monthly self-breast exams. A clinical breast exam by your physician is recommended on an annual basis. This exam should not preclude additional follow-up of suspicious palpable abnormalities. Note on Vicki scores and lifetime risk: 1. A Vicki score greater than 3% is considered moderate risk. If this is the case, consider specialist referral to assess eligibility for a risk reducing agent. 2. If overall lifetime risk for the development of breast cancer is 20% or higher, the patient may qualify for future screening with alternating mammogram and breast MRI. [facility], , 08/06/2024 4:52 PM. Electronically signed and approved by: Gonzales Soto M.D. Radiologist
== END | disposition home or self-care (01) ==
LOC: RADMAMWWP 16:15
PROVIDERS: ATTEND Family Medicine
DX: Z12.31 Encounter for screening mammogram for malignant neoplasm of breast (principal); R92.333 Mammographic heterogeneous density, bilateral breasts; Z80.3 Family history of malignant neoplasm of breast; Z98.82 Breast implant status
CPT/HCPCS: 77067